=== PATIENT | male | born 1990 | race African-American/Black ===

== ENCOUNTER 2016-05-02 19:22 | Emergency (ER) | payer MEDICAID ==
[~2016-05-02] VITALS: Ht 170.2 cm; Wt 64.1 kg
[2016-05-02 22:04] LABS: ASPARTATE AMINO TRANSFERASE 23 U/L (15-37); BLOOD UREA NITROGEN 9 mg/dL (7-18)
[2016-05-02 22:11] LABS: IS PT STATUS REG ER OR PRE ER? YES
[2016-05-02 22:18] LABS: HEMOGLOBIN 14.8 g/dL (13.7-18.0)
[2016-05-02 22:27] VITALS: BP 119/74
== END 2016-05-02 22:29 | disposition home or self-care (01) ==
LOC: ED 20:55
DX: R07.89 Other chest pain (principal); R11.2 Nausea with vomiting, unspecified; I10 Essential (primary) hypertension
CPT/HCPCS: 36415; 71010; 80053; 80307; 83690; 84484; 85025; 93005

== ENCOUNTER 2019-07-26 09:26 | Emergency (ER) | payer SELFPAY ==
[~2019-07-26] VITALS: Ht 172.7 cm; Wt 64.2 kg
[2019-07-26 09:35] VITALS: BP 115/77
[2019-07-26] MEDS ORDERED: FAMOTIDINE 20 MG TABLET ONE (09:56)
[2019-07-26] MEDS ORDERED: DIPHENHYDRAMINE 25 MG CAPSULE ONE (09:56)
[2019-07-26] MEDS ORDERED: DIPHENHYDRAMINE 50 MG/ML, 1ML IM ONE (10:00)
[2019-07-26] MEDS ORDERED: FAMOTIDINE 20 MG TABLET PO ONE (10:00)
== END 2019-07-26 10:18 | disposition home or self-care (01) ==
LOC: ED 10:02
DX: T78.40XA Allergy, unspecified, initial encounter (principal); R21 Rash and other nonspecific skin eruption; I10 Essential (primary) hypertension; X58.XXXA Exposure to other specified factors, initial encounter
CPT/HCPCS: 96372; 99283; J1200; J7512